=== PATIENT | female | born 1980 | race Caucasian/White ===

== ENCOUNTER → 2018-10-24 11:12 | Outpatient (CLI) | payer BC, SELFPAY ==
[2018-10-22 14:17] VITALS: BMI 22.9
[2018-10-24 12:05] LABS: Absolute Lymphocyte Count 1.91 X10^3/ul (0.83-4.51); Absolute Neutrophil Count 4.7 X10^3/uL (2.0-7.7); Basophil# 0.02 X10^3/uL; Basophil% 0.3 % (0-1); Eosinophil# 0.18 X10^3/uL; Eosinophils% 2.4 % (0-5); Hematocrit 44.3 % (37-47); Hemoglobin 14.3 g/dl (12.0-15.0); Lymphocyte # 1.91 X10^3/ul (4.0); Lymphocyte % 25.6 % (19-41); Mean Corp Hgb Conc 32.3 g/gl (32-36); Mean Corpuscular Hgb 31.4 pg (27.0-32.0); Mean Corpuscular Volume 97.1 fL (81-99); Mean Platelet Vol. 9.8 fl (6.2-12.0); Monocyte# 0.64 X10^3/uL; Monocyte% 8.6 % (0-10); Neutrophil # 4.69 X10^3/uL (2.7-7.7); POSITIVE COUNT NO; POSITIVE DIFFERENTIAL NO; POSITIVE MORPHOLOGY NO; Platelet Count 248 K/mm3 (150-450); RBC Distribution Width CV 12.6 % (11.6-14.6); RBC Distribution Width SD 44.8 fl (35.1-43.9); Red Blood Count 4.56 M/mm3 (4.2-5.4); White Blood Count 7.5 K/mm3 (4.4-11.0)
[2018-10-24 12:19] LABS: AST(SGOT) 15 U/L (15-37); Alanine Aminotransfer ALT/SGPT 21 U/L (13-56); Albumin, Serum 3.7 g/dL (3.2-5.0); Alkaline Phosphatase 52 U/L (45-117); Anion Gap 10 (5-15); BUN 9 mg/dL (7-18); BUN/Creat Ratio 13.1 RATIO (10-20); Calcium,Total 8.4 mg/dL (8.5-10.1); Chloride 106 mmol/L (98-107); Creatinine, Serum 0.68 mg/dL (0.55-1.02); EST Glomerular Filtration Rate 101 mL/min (>60); Est Glom Filt Rate - Afr Amer 122 mL/min (>60); Globulin 3.7 g/dL (2.2-4.2); Glucose 82 mg/dL (74-106); Potassium 3.9 mmol/L (3.5-5.1); Protein, Total 7.4 g/dL (6.4-8.2); Rheumatoid Factor < 10.0 IU/mL (<15); Sodium Level 140 mmol/L (136-145)
[2018-10-27 15:52] LABS: ANTINUCLEAR ANTIBODIES DIRECT Negative (Negative)
[2018-10-27 16:10] LABS: CCP IgG Antibodies 5 units (0-19)
== END ==
PROVIDERS: Family Provider Internal Medicine; PCP Internal Medicine; Referring Provider Internal Medicine; Visit Provider Internal Medicine
DX: M19.90 Unspecified osteoarthritis, unspecified site (principal); J45.909 Unspecified asthma, uncomplicated
CPT/HCPCS: 36415; 80053; 85025; 86038; 86200; 86225; 86235; 86431

== ENCOUNTER → 2018-11-24 08:25 | Outpatient (CLI) | payer BC, SELFPAY ==
[2018-11-21 09:57] VITALS: BMI 22.9
[2018-11-24 09:08] LABS: Absolute Lymphocyte Count 2.79 X10^3/ul (0.83-4.51); Absolute Neutrophil Count 4.2 X10^3/uL (2.0-7.7); Basophil# 0.02 X10^3/uL; Basophil% 0.3 % (0-1); Eosinophil# 0.15 X10^3/uL; Eosinophils% 1.9 % (0-5); Hematocrit 43.3 % (37-47); Hemoglobin 14.1 g/dl (12.0-15.0); Lymphocyte # 2.79 X10^3/ul (4.0); Lymphocyte % 35.7 % (19-41); Mean Corp Hgb Conc 32.6 g/gl (32-36); Mean Corpuscular Hgb 31.1 pg (27.0-32.0); Mean Corpuscular Volume 95.6 fL (81-99); Mean Platelet Vol. 9.5 fl (6.2-12.0); Monocyte# 0.64 X10^3/uL; Monocyte% 8.2 % (0-10); Neutrophil # 4.21 X10^3/uL (2.7-7.7); Neutrophil % 53.8 % (47-70); Platelet Count 246 K/mm3 (150-450); RBC Distribution Width CV 12.5 % (11.6-14.6); RBC Distribution Width SD 43.5 fl (35.1-43.9); Red Blood Count 4.53 M/mm3 (4.2-5.4); White Blood Count 7.8 K/mm3 (4.4-11.0)
[2018-11-24 09:09] LABS: POSITIVE COUNT NO; POSITIVE DIFFERENTIAL NO; POSITIVE MORPHOLOGY NO
[2018-11-24 09:36] LABS: Cholesterol 230 mg/dL (200); High Density Lipoprotein 89 mg/dL; Triglycerides 93 mg/dL; Very Low Density Lipoprotein 19 mg/dL (5-40)
[2018-11-24 09:44] LABS: Follicle Stimulating Hormone 8.2 mIU/mL
== END ==
PROVIDERS: Family Provider Internal Medicine; PCP Internal Medicine; Referring Provider Nurse Practitioner Women's Health; Visit Provider Nurse Practitioner Women's Health
DX: Z00.00 Encounter for general adult medical examination without abnormal findings (principal); N91.1 Secondary amenorrhea; R23.2 Flushing
CPT/HCPCS: 36415; 80061; 83001; 84443; 85025

== ENCOUNTER 2020-08-18 05:55 | Day surgery (SDC) | payer BC, SELFPAY ==
[2018-11-21 09:57] VITALS: BMI 22.9
--- NOTE | 2020-08-05 09:42 | HP.PCM_ITS ---
History and Physical Date of Admission: 08/18/20 HPI: The patient is a 39 year old female presenting for pre-operative visit. She is scheduled for?hysteroscopy D&C with polyp reseection, for?Abnormal uterine bleeding? on?08/18/2020. ??Procedure discussed along with risks, benefits and complications. ?Other alternatives discussed for management. Consent form signed??Yes.? PAST MEDICAL HISTORY PAST MEDICAL HISTORY Diagnosis Date ? Goiter diffuse, nontoxic ? ? Resolved ? Polycystic ovaries ? ? ? PAST SURGICAL HISTORY PAST SURGICAL HISTORY Procedure Laterality Date ? D&C, DIAG AND/OR THERAPEUTIC ? 2010 ? Dilation & curettage, miscarriage ? PAST SURGICAL HISTORY OF ? ? ? wisdom teeth extraction ? ? CURRENT MEDICATIONS Current Outpatient Medications Medication Sig Dispense Refill ? MAGNESIUM ORAL Take by mouth. ? ? ? docosahexaenoic acid/epa (FISH OIL ORAL) Take by mouth. ? ? ? cyanocobalamin, vitamin B-12, (VITAMIN B-12 ORAL) Take by mouth. ? ? ? norgestimate 0.25 mg-ethinyl estradiol 35 mcg (SPRINTEC) 0.25-35 mg-mcg per tablet Take 1 tablet daily. Take active pills only. 3 Package 5 ? No current facility-administered medications for this visit.? ? ALLERGIES:?Latex ? PERSONAL HISTORY:? SOCIAL HISTORY Social History ? Tobacco Use ? Smoking status: Never Smoker ? Smokeless tobacco: Never Used Substance Use Topics ? Alcohol use: Yes ? ? Comment: Occasionally ? Drug use: No ? FAMILY HISTORY:? FAMILY HISTORY FAMILY HISTORY Problem Relation Age of Onset ? No Known Problems Mother ? ? Hypertension Father ? ? other (parkinsons) Father ? ? No Known Problems Brother ? ? No Known Problems Brother ? ? other (Osteopenia) Sister ? ? Cancer Maternal Grandmother ?Bladder and Lung ? REVIEW OF SYMPTOMS: GENERAL: denies fevers or chills ENDOCRINOLOGY: has not been on steroids Cardiology : denies palpitations or chest pain Respiratory: denies SOB or cough Hematology: denies history of prolonged bleeding or easy bruising or VTE Allergy: Denies history of personal or family history of allergy to anesthesia ? ? PHYSICAL EXAMINATION: ? VITALS:?Last menstrual period 05/29/2013. ? GENERAL:??The patient is well nourished, well hydrated in no acute distress. ?, The patient is oriented to time, place, and person. NECK:?Supple. No lynphadenopathy, normal thyroid, no thyromegaly. LUNGS:?Clear to auscultation bilaterally. no wheezes, rhonchi or rales HEART:?Regular rate and rhythm, Normal heart sounds and No murmurs or gallops GENITALIA:?Normal external genitalia, Urethral meatus normal, Bladder nontender, normal vagina and normal vaginal tone, normal cervix, normal uterus, size and consistency, normal adnexa without masses or tenderness and perineum WNL ? IMPRESSION:?abnormal uterine bleeding, uterine fibroids and uterine polyps ? PLAN:???The risks/benefits/alternatives and personal involved for the planned?hysteroscopy D&C with possible polyp oand/or fibroid resection?were reviewed with the patient. Her questions were answered to her satisfaction and she desires to proceed. ?Consent was signed. ?I reviewed with her postop instructions and expectations. ? ? I have reviewed and updated past medical and surgical history, medications and allergies?This H&P was completed in my office on 08/05/2020 Procedure Criteria Procedure Type: Elective COVID Risk Discussion: The surgeon/proceduralist and patient have discussed in detail the risk of exposure to and/or potential harm posed by the COVID-19 virus with having a surgery/procedure at this time versus the risk of delaying the surgery/procedure. It is not possible to know either the risk of delaying the surgery or procedure or chance of getting an infection with perfect accuracy, b ut a joint decision was made between the patient and the surgeon/proceduralist to proceed at this time with the scheduled surgery/procedure as indicated on the consent form.
[2020-08-18] VITALS (7 sets, daily range): BP systolic 108–125; BP diastolic 73–83; PULSE 74–93; RESP 16; TEMP 36.8–37.2; O2SAT 97–100; BMI 26.3
[2020-08-18] MEDS: Acetaminophen 500 MG Tablet 1000 MG PO (06:23)
[2020-08-18 06:33] LABS: Internal QC Validated? YES +Cl - CLEAR BKGD; Pregnancy, Urine Negative Negative
[2020-08-18] MEDS: Lactated Ringers 1,000 ML 100 ML IV (06:35)
[2020-08-18] MEDS: Ketorolac 30 MG/ML Syringe IV (06:55)
--- NOTE | 2020-08-18 07:30 | EMB_PTH ---
PATIENT: BROCK JAIME LOC: [facility] U#:[id number] AGE/SX: 39/F ROOM: RE08/18/[address]: Dr. Swati Hawthorne MD : 1980 BED: DIS: 08/18/2020 SPEC #: [id number] RECD: 08/18/20 09:40 STATUS: LUIS DEEDeya #: [id number] ANA CRISTINA: 08/18/20 07:[address]: Swati Hawthorne DEPT: SURGICAL PATHOLOGY RECD BY: Anni Montes ENTERED: 08/18/20 11:27 SP TYPE: ENDOM BX/C CLEMENTINA DR: Dr. Delia Jiang MD Tissues: Endometrium, NOS Procedures: Surgery Specimen Level IV HEADER OPERATION: Hysteroscopy, D & C, fibroid resection PRE-OP DIAGNOSIS: Abnormal uterine bleeding, uterine fibroids TISSUE SUBMITTED: Endometrial curettings and uterine fibroid MICROSCOPIC DIAGNOSIS Endometrial curettings and uterine fibroid: Fragments of weakly proliferative endometrium. Fragments of myometrium consistent with submucosal leiomyoma. Focal changes suggestive of adenomyosis. Fragments of benign ectocervical epithelium. TEREZA:jeana 08/19/20 MICROSCOPIC DESCRIPTION Slides are reviewed. GROSS DESCRIPTION Received in fixative is one container labeled with the patient's name and designated endometrial curettings and uterine fibroid. The specimen consists of multiple irregular fragments of enriquez soft tissue that in aggregate measure 5 x 3 x 0.3 cm. The entire specimen is submitted in two cassettes. / TEREZA:jeana 08/18/20 TC:1 CPT: 72580
--- NOTE | 2020-08-18 08:11 | PCM.OPRPT ---
Report of Operation Date of Procedure: 08/18/20 Pre-Operative Diagnosis: Abnormal uterine bleeding, uterine fibroids Post-Operative Diagnosis: Same Surgery/Procedure Performed:: Hysteroscopy with dilation and curettage with fundal anterior fibroid resection Description of Surgical Findings:: Normal-appearing cervix and vagina, endometrial cavity with lush endometrium. No discrete polyps. Anterior fundal fibroid protruding into the endometrial cavity. Both tubal ostia were identified. aircraft cylinder mechanic: len Boyd MS3 Type of Anesthesia:: MAC/Supplemental/Local Anesthesiologist: Price Carrington Special Medications: none Specimen's removed: enodmetrial curettings and uterine fibroid Drains: none Estimated Blood Loss (mL): 10 Fluids Replaced: 900cc Description of Procedure: The patient was taken to the OR where she was prepped and draped in dorsal lithotomy position. The weighted speculum was placed in the vagina and the anterior lip of the cervix was grasped with a single-tooth tenaculum. A paracervical block was administered with [1% lidocaine with 1-100,000 epinephrine solution]. The cervix was dilated serially with Hegar dilators. The Symphion hysteroscope was placed into the uterine cavity and the above findings were noted. Bilateral tubal ostia [were] identified. The resection device for the Symphion hysteroscope was inserted. A visual D&C was done of the endometrial cavity. The anterior uterine fibroid was then resected until it was no longer protruding into the cavity. The hysteroscope was removed. The instruments were removed from the vagina. The specimen was handed off and sent to pathology. All sponge and needle counts were correct. Vaginal sweep was performed by me. The patient was awakened and taken to the recovery room in stable condition. Calculated hysteroscopic fluid deficit is 900 cc of normal saline Start time 0749 Stop time 0810 Grafts/Implants Used: none - Complications none - Admit VTE Documentation VTE Present on Admission: No VTE Mechan Device Prophylaxis: SCD's VTE Pharm Prophylaxis ordered?: No Reason prophylaxis not ordered:: Procedure Not Indicated
--- NOTE | 2020-08-18 08:36 | DCINST_ITS ---
Discharge Diet: No Restrictions Discharge Activity: Return to Normal Activity, May Shower, May Take a Tub Bath - in 2 weeks. Return to work on:: 08/19/20 May shower in (days): 1 May resume sexual activity in: 2 weeks Call your doctor if your incision/area has: Sudden Increased Bleeding Call your doctor if you observe: Fever of 101 or Higher, Using more than one pad per hour Allergies/Adverse Reactions: Allergies Latex, Natural Rubber Allergy (Intermediate, Verified 08/02/20 13:27) inflamation Medications to take at Discharge cholecalciferol (vitamin D3) 25 mcg (1,000 unit) capsule 1,000 unit PO DAILY 10/22/18 magnesium 30 mg tablet 30 mg PO DAILY 10/22/18 Cyanocobalamin (Vitamin B-12) [Vitamin B-12] 1,000 mcg PO DAILY 08/02/20 Norgestimate-Ethinyl Estradiol [Sprintec 28 Day Tablet] 1 ea PO DAILY 08/02/20 Primary Care Physician: Delia Jiang MD [Primary Care Provider] - Test Results: Test results from this visit will be discussed in further detail at your follow- up appointment, if applicable. Please Follow Up With: Swati Hawthorne MD - [phone] When: as needed. We will call you next week with your pathology results
== END 2020-08-18 09:26 | disposition home or self-care (01) ==
LOC: SDC 05:55 → AC 05:56
PROVIDERS: Anesthesiology; PCP Internal Medicine; Referring Provider Obstetrics & Gynecology; Visit Provider Obstetrics & Gynecology
PROC: 0UB98ZZ Excision of Uterus, Via Natural or Artificial Opening Endoscopic (ICD-10-PCS; CPT 58558; principal; 2020-08-18 07:15)
DX: N93.9 Abnormal uterine and vaginal bleeding, unspecified (principal); D25.9 Leiomyoma of uterus, unspecified; N84.0 Polyp of corpus uteri; Z11.59 Encounter for screening for other viral diseases
CPT/HCPCS: 58561; 81025; 87635; 88305; C9803; J7120; J2405; U0003

== ENCOUNTER 2022-06-01 05:29 | Day surgery (SDC) | payer BC, SELFPAY ==
[2022-05-25 15:13] LABS: Hematocrit 37.9 % (37-47); Hemoglobin 12.7 g/dL (12.0-15.0); Mean Corp Hgb Conc 33.5 g/dL (32-36); Mean Corpuscular Hgb 31.4 pg (27.0-32.0); Mean Corpuscular Volume 93.8 fL (81-99); Mean Platelet Vol. 9.9 fl (6.2-12.0); Platelet Count 274 K/mm3 (150-450); RBC Distribution Width CV 12.5 % (11.6-14.6); RBC Distribution Width SD 43.3 fl (35.1-43.9); Red Blood Count 4.04 M/mm3 (4.2-5.4); White Blood Count 8.3 K/mm3 (4.4-11.0)
[2022-05-25 15:25] LABS: International Normalized Ratio 0.9; Prothrombin Time (Protime)PT. 12.2 SECONDS (11.7-14.9)
[2022-05-25 15:26] LABS: Partial Thromboplast Time 30.1 Seconds (24.1-36.2)
[2022-05-25 15:49] LABS: AST(SGOT) 12 U/L (15-37); Alanine Aminotransfer ALT/SGPT 14 U/L (13-56); Albumin, Serum 3.6 g/dL (3.2-5.0); Alkaline Phosphatase 53 U/L (45-117); Bilirubin, Direct 0.11 mg/dL (0.00-0.30); Globulin 3.6 g/dL (2.2-4.2); Magnesium 2.2 mg/dL (1.6-2.6); Protein, Total 7.2 g/dL (6.4-8.2)
[2022-06-01] VITALS (12 sets, daily range): BP systolic 97–116; BP diastolic 59–79; PULSE 65–101; RESP 16; TEMP 36.1–37.2; O2SAT 92–100; BMI 25.7
[2022-06-01 06:12] LABS: Internal QC Validated? YES +Cl - CLEAR BKGD; Pregnancy, Urine Negative Negative
[2022-06-01] MEDS: Lactated Ringers 1,000 ML 40 ML IV ×2 (06:57→09:01)
[2022-06-01] MEDS: Phenazopyridine 95 MG Tablet 190 MG PO (06:57)
[2022-06-01] MEDS: Gabapentin 600 MG Tablet PO (06:58)
[2022-06-01] MEDS: Celecoxib 200 MG Capsule 400 MG PO (06:58)
[2022-06-01] MEDS: Acetaminophen 500 MG Tablet 1000 MG PO (06:58)
[2022-06-01] MEDS: Scopolamine 1mg/72hr Patch 1 PATCH TD (06:59)
--- NOTE | 2022-06-01 07:30 | HYST_PTH ---
PATIENT: BROCK JAIME LOC: [facility] [place] U#:[id number] AGE/SX: 41/F ROOM: RE06/01/[address]: Dr. Swati Hawthorne MD : 1980 BED: DIS: 06/01/2022 SPEC #: [id number] RECD: 06/01/22 09:55 STATUS: LUIS YOUNGBLOOD #: [id number] ANA CRISTINA: 06/01/22 07:[address]: Swati Hawthorne DEPT: SURGICAL PATHOLOGY RECD BY: Anni Montes ENTERED: 06/01/22 10:51 SP TYPE: HYSTERECT OTHR DR: Dr. Delia Jiang MD Tissues: Uterus, NOS Procedures: Surgery Specimen Level V HEADER OPERATION: Hysterectomy, TLH, salpingectomy PRE-OP DIAGNOSIS: Intramural uterine fibroid, dyspareunia, abnormal uterine bleeding TISSUE SUBMITTED: Cervix, uterus, bilateral fallopian tubes MICROSCOPIC DIAGNOSIS Uterus, hysterectomy: Cervix ? nabothian cysts and mild chronic inflammation. Endometrium ? proliferative endometrium. Myometrium ? leiomyomas with degenerative change and adenomyosis. Bilateral fallopian tubes - benign paratubal cysts. AM:jeana 06/05/2022 MICROSCOPIC DESCRIPTION Slides are reviewed. GROSS DESCRIPTION Received in fixative is one container labeled with the patient's name and designated cervix, uterus, bilateral fallopian tubes. The specimen consists of a hysterectomy specimen consisting of uterus with cervix and detached bilateral fallopian tubes. The uterus with cervix weighs 116 gm and measures 10.5 x 7 x 4.5 cm. Multiple subserosal nodules are noted. The serosal surface is enriquez, glistening. The ectocervical mucosa is unremarkable. The external os is oval in contour. The endocervical canal measures 3 cm in length and the endocervical mucosa is enriquez, glistening and unremarkable. The triangular endometrial cavity measures 3.5 cm in length and up to 2.5 cm in width. The endometrium is enriquez, glistening without any mass lesion and measures 0.1 cm in thickness. Sections of the uterine wall reveal multiple submucosal intramural and subserosal nodular masses. The largest mass measures 2 cm in greatest dimension. Sections of these masses reveal enriquez whorled cut surfaces without areas of hemorrhage, necrosis or cystic degeneration. The uninvolved uterine wall measures up to 2.5 cm in thickness. The fallopian tubes are not identified as right or left. One fallopian tube measures 7.5 cm in length and 0.5 cm in diameter. The fimbrial end is identified. The second fallopian tube is similar appearance to first one and measures 5.5 cm in length and 0.5 cm in diameter. A paratubal cyst is also noted measuring 0.7 cm in greatest dimension. Sections reveal unremarkable cut surfaces. Racking Machine Operator sections are submitted in 11 cassettes as follows: 1 - anterior cervix, 2 - posterior cervix, 3 & 4 - anterior uterine wall, 5 & 6 - posterior uterine wall, submucosal and intramural masses, 7 & 8 - largest nodular masses, 9 - smaller nodular masses, 10 - one fallopian tube, 11 - second fallopian tube and paratubal cyst. / SJ:rg 06/01/2022 TC:1 CPT: 15443
--- NOTE | 2022-06-01 07:33 | PCM.HP.BLA ---
History and Physical Date of Admission: 06/01/22 Patient seen and examined. H&P reviewed. No clinically relevant updates since completed and entered. Assessment & Plan Assessment/Plan (1) Intramural uterine fibroid: (2) Dyspareunia: (3) Abnormal uterine bleeding (AUB):
--- NOTE | 2022-06-01 07:38 | DCINST_ITS ---
Discharge Instructions Diet Discharge Diet: Light diet - advance as tolerated Activity Discharge Activity: May Drive (5-10 days as tolerated when not on pain medication) May shower in (days): 1 May resume sexual activity in: 6 weeks Dressing / Incision Call your doctor if your incision/area has: Continuous Slow Oozing, Sudden Increased Bleeding and Foul Smelling Discharge Call your doctor if you observe: Fever of 101 or Higher Cleanse incision/area with: Soap & Water (Your incisions have skin glue, it can get wet. Leave it on for 10-14 days) Follow Up Care Please Follow Up With: Swati Hawthorne MD When: 1-2 and 6 weeks or as needed Test Results: Test results from this visit will be discussed in further detail at your follow- up appointment, if applicable. Discharge Plan Admission Primary Reason for Your Visit: Hysterectomy Attending Provider: Swati Hawthorne Primary Care Provider: Delia Jiang Instructions Patient Instructions: Discharge Instructions for ... Discharge Orders/Prescriptions Prescriptions: No Action magnesium 30 mg tablet 30 mg PO QODAY cholecalciferol (vitamin D3) 1,000 unit capsule 1,000 unit PO QODAY norgestimate-ethinyl estradiol 1 EACH tablet 1 ea PO DAILY cyanocobalamin (vitamin B-12) 1,000 MCG tablet 1,000 mcg PO DAILY Referrals / Follow Up: Delia Jiang MD [Primary Care Provider] - Disposition Disposition (needs filled in before D/C Order can be placed): Home, Self Care
[2022-06-01] MEDS: Cefazolin 2 GM in 0.9% Normal Saline 100 ML IV (07:39)
[2022-06-01] MEDS: dexAMETHasone 10 MG/ML Vial 8 MG IV (08:00)
[2022-06-01] MEDS: Bupivacaine Mpf 0.5% 30 ML VIAL (08:30)
[2022-06-01] MEDS: Ondansetron 4 MG/2 ML Vial IV (09:00)
--- NOTE | 2022-06-01 09:05 | PCM.OPRPT ---
Problems Associated Problem List Diagnoses (1) Abnormal uterine bleeding (AUB): (2) Dyspareunia: (3) Intramural uterine fibroid: Report of Operation Date of Procedure: 06/01/22 Pre-Operative Diagnosis: AUB, dyspareunia, intramural uterine fibroids Post-Operative Diagnosis: same + endometriosis of the peritoneum Surgery/Procedure Performed:: TLH, bilateral salpingectomy and cystoscopy Description of Surgical Findings:: enlarged boggy uterus, normal tubes and ovaries, normal appendix, some endometriosis on anterior uterus, posterior cul de sac over cervix and left ovarian fossa on peritoneum Surgeon: Swati Hawthorne director data processing: Vanda Petit Type of Anesthesia: General Anesthesiologist: Chico Eller Special Medications: none Specimen's removed: uterus, cervix, bilateral fallopian tubes Drains: none Estimated Blood Loss (mL): 50 Fluids Replaced: 1800 Description of Procedure: The patient was taken to the operating room where she was prepped and draped in the dorsal lithotomy position. Her arms were tucked to the side and padded and her legs were placed in the yellowfin stirrups. Care was taken to ensure that she was placed in a neurologically safe and neutral position. The Huggie VAC was placed around the patient to secure her. A weighted speculum was placed in the vagina and the anterior lip of the cervix was grasped with a single-tooth tenaculum. The cervix sounded to 9 centimeters. 2-0 Vicryl sutures were secured to the cervix at 3 and 9:00. The medium size uterine manipulator was placed into the cervix and the balloon inflated. The stay sutures were placed through the cup and secured down to the cervix. Once the uterine associate juvenile court judge was secured to the cervix the Minor catheter was placed to straight drain. Attention was turned to the abdominal portion of the case. Before skin incisions were made they were infiltrated with 0.5% Marcaine solution for local anesthetic. A 5 mm [intraumbilical] incision was made and while tenting the anterior abdominal wall up with towel clamps a 5 mm blade less trocar and sleeve were advanced directly into the peritoneal cavity. Peritoneal placement was confirmed with the laparoscope the pneumoperitoneum was created, and the underlying abdominal contents were intact. The patient was placed in Trendelenburg and the above findings were noted. Right and left lateral 5 mm trochars were placed under direct visualization without difficulty. The antimesenteric portion of the tube was clamped sealed and transected serially on both sides with the LigaSure device. The round ligaments were clamped sealed and transected and a window was made in the peritoneum. The utero-ovarian ligaments were then clamped sealed and transected with the LigaSure device and the pedicles were hemostatic The bladder flap was dissected down with the LigaSure device and blunt dissection and the uterine arteries were then skeletonized. The uterine arteries were clamped sealed and transected on both sides with the LigaSure device. Then along the cardinal ligament uterine arteries adjacent to the cervix were clamped sealed and transected with the LigaSure device to move them away from the vaginal cuff angle. At this point the pedicles were all examined and found to be hemostatic. The bladder flap was rechecked and found to be adequately down. The monopolar tip of the LigaSure device was then used to enter the anterior vagina. The vaginal manipulator cup was noted in the vaginal colpotomy incision was made circumferentially around the cup. When the 3 and 9:00 positions of the cervicovaginal junction were reached these were clamped sealed and transected with the LigaSure device to secure any small remaining vessels. At this point the pedicles were hemostatic from above and attention was turned to the vaginal portion of the case again. The uterus was brought intact out through the vaginal colpotomy incision. The pedicles were examined and found to be hemostatic. The cuff was closed horizontally with interrupted 0 Vicryl [id number] sutures. Care was taken to spare the vagina to the uterosacral ligaments. The cuff was hemostatic vaginally. The Minor catheter was removed and a cystoscopy was performed. The bladder appeared normal and was intact. Both ureteral orifices were noted and both ureteral jets were seen. The cystoscope was removed. A sponge stick was placed in the vagina to help place traction against the vaginal cuff and the pneumoperitoneum was re-created. The pedicles were reexamined and found to be hemostatic. The vaginal cuff was hemostatic. Some Etjinder was placed over the cuff and the pedicles and no active bleeding was noted through the Tejinder. The right and left lateral ports were taken out and the sites were hemostatic. The pneumoperitoneum was released and even under low pressure there was no bleeding of any of the pedicles are vaginal cuff. The umbilical port was removed. The umbilical skin incisions were closed with Monocryl suture and skin glue by [Dr. Lee]. The vaginal instruments were removed by me and a vaginal sweep was completed by me. The surgery was performed by me with assistance other than the portions dictated as above. There were no qualified residents available for this procedure. All sponge lap and needle counts were correct and the patient was transferred to the recovery room in stable condition. Dr. Lee provided uterine manipulation, tissue retraction, and laparoscopic assistance during the surgery. Grafts/Implants Used: none Procedure Start Time: 08:06 Procedure Stop Time: 09:07 Complications none Admit VTE Documentation VTE Present on Admission: No VTE Mechan Device Prophylaxis: SCD's VTE Pharm Prophylaxis ordered?: No Reason prophylaxis not ordered:: Procedure Not Indicated
[2022-06-01 09:20] LABS: Bedside Glucose 248 mg/dL (74-106)
[2022-06-01] MEDS: Lactated Ringers @ 70 MLS/HR 70 ML IV (10:14)
[2022-06-01 11:00] LABS: Bedside Glucose 105 mg/dL (74-106)
[2022-06-01 12:12] LABS: Hematocrit 36.5 % (37-47); Hemoglobin 12.1 g/dL (12.0-15.0); Mean Corp Hgb Conc 33.2 g/dL (32-36); Mean Corpuscular Hgb 31.9 pg (27.0-32.0); Mean Corpuscular Volume 96.3 fL (81-99); Mean Platelet Vol. 9.7 fl (6.2-12.0); Platelet Count 183 K/mm3 (150-450); RBC Distribution Width CV 12.7 % (11.6-14.6); RBC Distribution Width SD 45.1 fl (35.1-43.9); Red Blood Count 3.79 M/mm3 (4.2-5.4); White Blood Count 11.9 K/mm3 (4.4-11.0)
[2022-06-01] MEDS: traMADol 50 MG Tablet PO (12:41)
[2022-06-01] MEDS: Lactated Ringers 1,000 ML 75 ML IV (13:35)
== END 2022-06-01 15:25 | disposition home or self-care (01) ==
LOC: SDC 05:31 → AC 05:32
PROVIDERS: Anesthesiology; PCP Internal Medicine; Referring Provider Obstetrics & Gynecology; Visit Provider Obstetrics & Gynecology
PROC: 0UT94ZZ Resection of Uterus, Percutaneous Endoscopic Approach (ICD-10-PCS; CPT 58571; principal; 2022-06-01 07:10)
DX: N93.9 Abnormal uterine and vaginal bleeding, unspecified (principal); N94.10 Unspecified dyspareunia; D25.1 Intramural leiomyoma of uterus; N80.0 Endometriosis of uterus; N80.3 Endometriosis of pelvic peritoneum; N88.8 Other specified noninflammatory disorders of cervix uteri; N83.8 Other noninflammatory disorders of ovary, fallopian tube and broad ligament; E53.8 Deficiency of other specified B group vitamins; E55.9 Vitamin D deficiency, unspecified; M19.90 Unspecified osteoarthritis, unspecified site
CPT/HCPCS: 58571; 00840; 36415; 80076; 81025; 82962; 83735; 85027; 85610; 85730; 88307; J7120; J2405; J3475

== ENCOUNTER → 2022-07-13 | Outpatient (CLI) | payer BC, SELFPAY ==
[2022-07-13 12:42] LABS: Erythrocyte Sedimentation Rate 3 mm/hr (0-30)
[2022-07-13 13:00] LABS: ALB/GLOB Ratio 1.2 RATIO (0.9-2.4); AST(SGOT) 23 U/L (15-37); Alanine Aminotransfer ALT/SGPT 40 U/L (13-56); Albumin, Serum 4.1 g/dL (3.2-5.0); Alkaline Phosphatase 73 U/L (45-117); Anion Gap 6 (5-15); BUN 10 mg/dL (7-18); BUN/Creat Ratio 12.4 RATIO (10-20); Calcium,Total 9.4 mg/dL (8.5-10.1); Chloride 106 mmol/L (98-107); Cholesterol 220 mg/dL (200); EST Glomerular Filtration Rate 82 mL/min (>60); Est Glom Filt Rate - Afr Amer 100 mL/min (>60); Globulin 3.5 g/dL (2.2-4.2); Glucose 91 mg/dL (74-106); High Density Lipoprotein 90 mg/dL; Potassium 4.2 mmol/L (3.5-5.1); Protein, Total 7.6 g/dL (6.4-8.2); Rheumatoid Factor < 10.0 IU/mL (<15); Sodium Level 138 mmol/L (136-145); Triglycerides 67 mg/dL; Very Low Density Lipoprotein 13 mg/dL (5-40)
[2022-07-13 13:25] LABS: Hemoglobin A1c 5.3 % (3.8-5.6)
[2022-07-17 09:18] LABS: ANTINUCLEAR ANTIBODIES DIRECT Negative (Negative)
== END | disposition home or self-care (01) ==
LOC: BIMLAB 10:25
PROVIDERS: PCP Internal Medicine; Referring Provider Internal Medicine; Visit Provider Internal Medicine
DX: M19.90 Unspecified osteoarthritis, unspecified site (principal); E78.5 Hyperlipidemia, unspecified; R73.9 Hyperglycemia, unspecified
CPT/HCPCS: 36415; 80053; 80061; 83036; 85652; 86038; 86225; 86235; 86431

== ENCOUNTER → 2022-09-10 | Outpatient (CLI) | payer BC, SELFPAY ==
--- NOTE | 2022-09-10 17:14 | RAD_ITS ---
STUDY: X-RAY - SACRUM/COCCYX REASON FOR EXAM: Female, 41 years old. Low back pain TECHNIQUE: 3 view(s) of the sacrum and coccyx were obtained. COMPARISON: None. FINDINGS: Normal bilateral sacroiliac joints. Normal visualized sacral ala and fused sacral bodies. Normal sacrococcygeal junction with a normal angulation. Normal coccygeal segments. The presacral soft tissue structures are unremarkable. RAD/Sacrum-Coccyx min 2 Views IMPRESSION: Normal x-rays of the sacrum and coccyx. Electronically Signed: Holden North MD, TAMMI at 10:20 EDT ,
== END | disposition home or self-care (01) ==
LOC: RAD 17:07
PROVIDERS: PCP Internal Medicine; Referring Provider Internal Medicine; Visit Provider Internal Medicine
DX: M54.50 Low back pain, unspecified (principal); M53.3 Sacrococcygeal disorders, not elsewhere classified
CPT/HCPCS: 72220

== ENCOUNTER → 2024-05-22 | Outpatient (CLI) | payer BC, SELFPAY ==
--- NOTE | 2024-05-22 12:53 | BI_ITS ---
MAMMOGRAPHY - BILATERAL SCREENING REASON FOR EXAM: Female, 43 years old. Routine annual screening examination. PERTINENT HISTORY: Aunt with breast cancer. TECHNIQUE: Digital bilateral breast [place] (3D mammographic acquisition) in the CC and MLO projections. 2-D mediolateral oblique (MLO) and craniocaudad (CC) views of both breasts were obtained. CAD: Full Field Digital Mammography with Computer Added Detection was performed. COMPARISON: Comparison is made with prior outside examination dated April 27, 2022. FINDINGS: Breast Composition: The breasts are heterogeneously dense, which may obscure small masses. There are no dominant masses or suspicious calcifications. No other significant abnormalities are identified. There has been no significant change since the prior study. BI/SCRN MAMM (CAD)W/[place] BILAT IMPRESSION: Stable bilateral screening mammogram. Yearly follow-up mammogram recommended. (A) ASSESSMENT CATEGORY: BIRADS Category 1: Negative. A letter regarding these results will be sent to the patient by the facility within 30 days. Approximately 10% of breast cancers are not detected by mammography. A normal mammogram should not delay biopsy of a clinically suspicious abnormality. [id number] Electronically Signed: Deven Richards MD at 14:15 EDT ,
== END | disposition home or self-care (01) ==
LOC: OPBI 12:52
PROVIDERS: PCP Internal Medicine; Referring Provider Nurse Practitioner; Visit Provider Nurse Practitioner
DX: Z12.31 Encounter for screening mammogram for malignant neoplasm of breast (principal)
CPT/HCPCS: 77063; 77067

== ENCOUNTER 2024-06-12 08:04 | Day surgery (SDC) | payer BC, SELFPAY ==
[2024-06-12] VITALS (7 sets, daily range): BP systolic 95–103; BP diastolic 58–73; PULSE 78–91; RESP 16–18; TEMP 36.2–36.7; O2SAT 97–100; BMI 25.3
[2024-06-12] MEDS: Lactated Ringers 1,000 ML 15 ML IV (08:15)
--- NOTE | 2024-06-12 08:15 | PCM.PRE.AN2 ---
ASA Classification* ASA Classification ASA Classification: 2 Assessment & Plan Anesthesia* Anesthesia Assessment Anesthesia Assessment: Discussed sedation and/or anesthesia options, risks, benefits, and alternatives with patient/parents/legal guardian/POA. Questions invited. The patient/parents/legal guardian/POA seems to understand and agrees to proceed with anesthesia plan. Reviewed the physical assessment, medical history, allergy history and patient home medications list prior to surgery/procedure/anesthetic and documented any changes. Performed airway and anesthesia risk assessments. Anesthesia Type Anesthesia Type: MAC (see written pre anesthesia record for full assessment) Anesthesia Focused Assessment* Airway Assessment Mouth opens: >3 cm Mallampati Score: II Focused Labs Anesthesia Preop lab: CBC WBC 11.9 K/mm3 (4.4-11.0) H 06/01/22 12:00 RBC 3.79 M/mm3 (4.2-5.4) L 06/01/22 12:00 Hgb 12.1 g/dL (12.0-15.0) 06/01/22 12:00 Hct 36.5 % (37-47) L 06/01/22 12:00 Plt Count 183 K/mm3 (150-450) 06/01/22 12:00 CHEMISTRY Potassium 4.2 mmol/L (3.5-5.1) 07/13/22 10:26 Sodium 138 mmol/L (136-145) 07/13/22 10:26 Magnesium 2.2 mg/dL (1.6-2.6) 05/25/22 14:16 BUN 10 mg/dL (7-18) 07/13/22 10:26 Creatinine 0.80 mg/dL (0.55-1.02) 07/13/22 10:26 Glucose 91 mg/dL (74-106) 07/13/22 10:26 POC Glucose 105 mg/dL (74-106) 06/01/22 10:56 TSH 1.70 uIU/mL (0.358-3.74) 11/24/18 08:29 COAG PT 12.2 SECONDS (11.7-14.9) 05/25/22 14:16 Urine Test Negative Negative 06/01/22 06:00 Pre-Assessment Diagnosis/Proposed Procedure Planned Operative Procedure(s): COLONOSCOPY Anesthesia History 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 When Was Last Pacemaker Check QUESTION #4 FULL TEXT: You/Your Family Experience fever (hyperthermia) with Anesthesia Last Oral Intake Last Oral intake: Last Oral Intake NPO since Meds taken in AM with sips of water? Meds patient instructed to take am of surgery PONV PONV - metabolic specialist: PONV - metabolic specialist Female Yes 06/08/24 10:07 HX of Motion Sickness Yes 06/08/24 10:07 HX of N/V After Surgery Yes 06/08/24 10:07 Non-Smoker Yes 06/08/24 10:07 Duration of Surgery greater No 06/08/24 10:07 than 60 minutes Number of Risk Factors 4 06/08/24 10:07 PONV Score Severe Risk 06/08/24 10:07 Height & Weight Height & Weight: Anesthesia: Height & Weight Height 5 ft 4 in 05/12/24 13:06 Respiratory Assessment Respiratory Assessment - metabolic specialist: Respiratory Tract Infection Hx - metabolic specialist Hx Respiratory Tract Infection No 06/08/24 10:07 STOP Sleep Apnea STOP Sleep Apnea - metabolic specialist: STOP Sleep Apnea - metabolic specialist Hx Hypertension No 06/08/24 10:07 Hx Sleep Apnea No 06/08/24 10:07 CPAP BIPAP Do you snore loudly (louder No 06/08/24 10:07 than talking or can be heard Do you often feel tired/ No 06/08/24 10:07 fatigued/ sleepy during daytime? Has anyone observed you stop No 06/08/24 10:07 breathing during sleep? STOP Results Negative 06/08/24 10:07 QUESTION #5 FULL TEXT : Do you snore loudly (louder than talking or can be heard through closed doors)? 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 Specify any problems Hx of Preganancy in last 3 No 06/08/24 10:07 Months Nurse Filling Out Transfusion [facility] 06/08/24 10:07 & Questions: Date: 06/08/24 06/08/24 10:07 Time: 10:12 06/08/24 10:07 Patient unable to answer at this time (ie. confused, unrespo /Reproduction History /Reproductive History - metabolic specialist: /Reproductive Hx- metabolic specialist Hx Now No 06/08/24 10:07 Gestational Age (in weeks): EDC: Hx Hx Para Hx Section SAB No 06/08/24 10:07 Active Medications Active Medications: Current Medications Generic Name Dose Route Start Last Admin Trade Name Freq PRN Reason Stop Dose Admin Lactated Ringer's 1,000 mls @ 15 mls/hr 06/12/24 08:15 IV .Q48H JETT PFSH Medical History Acute pharyngitis, unspecified Polyarthropathy Tail bone pain Hyperlipidemia Hyperglycemia Excessive bleeding Depression Alcohol use Restless legs Non-smoker PONV (postoperative nausea and vomiting) Leg cramps Migraines Asthma Vitamin D deficiency Vitamin B12 deficiency History of polycystic ovaries Home Medications ?Medication ?Instructions ?Recorded ?Last Taken ?Type cholecalciferol (vitamin D3) 25 1,000 unit PO QODAY supplement 10/22/18 Unknown History mcg (1,000 unit) capsule magnesium 30 mg tablet 30 mg PO QODAY supplement 10/22/18 Unknown History cyanocobalamin (vitamin B-12) 1,000 mcg PO DAILY supplement 08/02/20 Unknown History 1,000 mcg tablet omega 1-csi-fkx-fish oil 1,200 mg 1 cap PO DAILY 07/13/22 Unknown History (144 mg-216 mg) capsule (Fish Oil) Allergy/AdvReac Type Severity Reaction Status Date / Time Latex, Natural Rubber Allergy Intermediate inflamation Verified 05/12/24 13:04 adhesive (adhesives) Allergy Rash Verified 05/12/24 13:04 Family History Father Parkinsons Surgical History H/O: hysterectomy Hx of LASIK History of D&C History of wisdom tooth extraction History of removal of cyst Social History household members: spouse current occupational status: employed Smoking Status: Never smoker alcohol intake: current alcohol intake frequency: holidays/special occasions only substance use type: does not use what type of physical activity do you participate in: walking and weight training frequency: 3-4 times per week additional social history: Alexsander- Both work at [employer] Review of Systems (Anesthesia) ROS Narrative System reviewed and no additional complaints, except as documented.
--- NOTE | 2024-06-12 09:30 | H&P.OPEN ---
HPI - General HPI Narrative BROCK JAIME, is a 43 F who presents for screening colonoscopy. She has never had a colonoscopy in the past. She denies abdominal pain or blood in the stool. She has no family history of colon cancer. [facility] Medical History Acute pharyngitis, unspecified Polyarthropathy Tail bone pain Hyperlipidemia Hyperglycemia Excessive bleeding Depression Alcohol use Restless legs Non-smoker PONV (postoperative nausea and vomiting) Leg cramps Migraines Asthma Vitamin D deficiency Vitamin B12 deficiency History of polycystic ovaries Home Medications ?Medication ?Instructions ?Recorded ?Last Taken ?Type cholecalciferol (vitamin D3) 25 1,000 unit PO QODAY supplement 10/22/18 Unknown History mcg (1,000 unit) capsule magnesium 30 mg tablet 30 mg PO QODAY supplement 10/22/18 Unknown History cyanocobalamin (vitamin B-12) 1,000 mcg PO DAILY supplement 08/02/20 Unknown History 1,000 mcg tablet omega 5-kap-ksy-fish oil 1,200 mg 1 cap PO DAILY 07/13/22 Unknown History (144 mg-216 mg) capsule (Fish Oil) Allergy/AdvReac Type Severity Reaction Status Date / Time Latex, Natural Rubber Allergy Intermediate inflamation Verified 05/12/24 13:04 adhesive (adhesives) Allergy Rash Verified 05/12/24 13:04 Family History Father Parkinsons Surgical History H/O: hysterectomy Hx of LASIK History of D&C History of wisdom tooth extraction History of removal of cyst Social History household members: spouse current occupational status: employed Smoking Status: Never smoker alcohol intake: current alcohol intake frequency: holidays/special occasions only substance use type: does not use what type of physical activity do you participate in: walking and weight training frequency: 3-4 times per week additional social history: Alexsander- Both work at [employer] Past Medical/Surgical History Planned Operation Planned Operative Procedure(s): COLONOSCOPY S.O.S: No Previous Hospitalizations/Surgeries HX Hospitalizations: No HX of Surgeries: wisdom teeth removed D&C Any Problems With Anesthesia: Yes (N/V) You/Your Family Experience Fever (Hyperthermia) With Anes: No Cholinesterase deficiency: No Cardiovascular Hx Chest Pain within Last 2 months: No Hx of Irregular Heartbeat and/or Afib: No Hx Heart Attack: No Hx Congestive Heart Failure: No Hx Rheumatic Fever: No Hx Hypertension: No Hx Internal Defibrillator: No Hx Pacemaker: No Hx Cardiac Catheterization: No Hx Cardiac Surgery/Stents/Etc.: No Hx Stress Test: No (echo 2015,holter) Hx Pain in Legs when Walking/Leg Cramps: No Respiratory Chronic Cough: No HX of Shortness of Breath: No (denies) Hoarseness: No Hx Chronic Obstructive Pulmonary Disease (COPD): No Hx Asthma: Yes (exercise induced/no inhaler) Hx Emphysema: No Hx Sleep Apnea: No Hx Respiratory Tract Infection/Cold (presently): No Do You Snore Loudly (louder than talking or can be heard): No Do You Often Feel Tired/ Fatigued/ Sleepy Dring Daytime?: No Has Anyone Observed You Stop Breathing During Sleep?: No Result (for STOP score): Negative Hx Smoking: No Smoking Status: Never smoker Gastrointestinal Hx Gastrointestinal Disorders: No Hx Gastrointestinal Bleed: No Hx Ulcer: No Hx Hiatal Hernia: No Difficulty Chewing/Swallowing: No Special diet followed at home: No Hx Unplanned Weight Loss of 20#: No HX Unplanned Weight Gain of 20#: No Neurological Hx Seizures: No HX Syncope/Blackout Spells/Unconsciousness: No Hx Transient Ischemic Attacks (TIA): No Hx Multiple Sclerosis: No Hx Parkinson's Disease: No Hx Head/Neck Injury: No Hx Headaches: Yes (occas) Hx Back Injury/Pain: No Recent Onset of Speech Difficulty: No Restless Legs: No Does patient have nerve stimulator: No Blood Disorder Hx Leukemia: No Bleeding Tendencies: No Hx Deep Vein Thrombosis: No Hx High Cholesterol: No Blood Transmitted Disease: No Hx Hepatitis: No Hx Cirrhosis: No Hx Anemia: No Hx Blood Disorders: No Reproduction : No Is Patient Lactating: No Hx Hysterectomy: No Hx Tubal Ligation: No Are You Post Menopause: No Genitourinary Hx Renal Disease: No Musculoskeletal Hx Arthritis: Yes (toes,fingers) Hx Rheumatoid Arthritis: No Hx Gout: No Recent Onset of an Orthopedic Problem: No Endocrine Hx Diabetes: No Thyroid Disease: No Hx Steroid Therapy: No Psycho/Social Hx Substance Use: No Hx Alcohol Use: Yes (3 drinks/week) Hx Anxiety: No Hx Depression: No Mental Illness: No Hx Dementia: No Miscellaneous Hx Cancer: No Recent Exposure to Contagious Disease: No Hx of C-Diff: No Any Loose Teeth: No Allergies Latex, Natural Rubber Allergy (Intermediate, Verified 05/12/24 13:04) inflamation adhesive (adhesives) Allergy (Verified 05/12/24 13:04) Rash Discharge Is Pt Admitted From a Skilled Nursing, or a Long-Term: No Who Could Help: After D/C, Where Do you Plan to Go: Return Home Vital Signs Vital Signs Vital Signs: 06/12/24 08:24 06/12/24 08:28 Temperature 98.1 F Temperature Source Temporal Pulse Rate 85 Respiratory Rate 16 Respiratory Pattern Normal Blood Pressure 103/73 Blood Pressure Mean 83 Blood Pressure Source Monitor Blood Pressure Position Sitting Blood Pressure Location Right Arm Pulse Ox 97 Weight Weight: 147 lb 11.355 oz Body Mass Index (BMI) 25.3 Physical Exam Const alert and oriented x3 HEENT normocephalic Eyes PERRL Resp normal respiratory effort and normal air movement Cardio regular rate and regular rhythm GI soft to palpation, non-tender and non-distended Extremity normal to inspection Assessment & Plan Assessment/Plan (1) Encounter for screening for malignant neoplasm of colon: PLAN: I explained endoscopy in detail to the patient. I explained the risks including but not limited to stroke or heart attack with anesthesia, perforation of the GI tract, bleeding, infection. I explained that any of these could necessitate further emergency surgery. The patient understands and all questions were answered sufficiently. The patient wishes to proceed with procedure. Cristofer Hudson MD Pager: [facility] [address] [place] [address], [address] [place] [address] Office: Surgery Risks - Colonoscopy Risks Include but are not Limited To: Risks include but are not limited to: Bleeding, perforation requiring further surgery, inability to complete colonoscopy requiring barium enema.
--- NOTE | 2024-06-12 10:23 | OP.COLON_ITS ---
Patient Name: Day Ramos Procedure Date: 06/12/2024 9:36 AM Date of : 1980 Age: 43 Procedure: Colonoscopy Indications: Screening for colorectal malignant neoplasm Providers: Cristofer Hudson MD Medicines: Propofol per Anesthesia Patient Profile: This is a 43 year old female. Refer to note in patient chart for documentation of history and physical. Last Colonoscopy: none. The patient's first colonoscopy is today. Complications: No immediate complications. Procedure: Pre-Anesthesia Assessment: - Prior to the procedure, a History and Physical was performed, and patient medications and allergies were reviewed. The patient's tolerance of previous anesthesia was also reviewed. The risks and benefits of the procedure and the sedation options and risks were discussed with the patient. All questions were answered, and informed consent was obtained. Prior Anticoagulants: The patient has taken no anticoagulant or antiplatelet agents. After reviewing the risks and benefits, the patient was deemed in satisfactory condition to undergo the procedure. After I obtained informed consent, the scope was passed under direct vision. Throughout the procedure, the patient's blood pressure, pulse, and oxygen saturations were monitored continuously. The colonoscope was introduced through the anus and advanced to the cecum, identified by appendiceal orifice and ileocecal valve. The colonoscopy was performed without difficulty. The patient tolerated the procedure well. The quality of the bowel preparation was good. The ileocecal valve, appendiceal orifice, and rectum were photographed. Scope In: 9:59:37 AM Scope Withdrawal Time 0 hours 6 minutes 5 seconds Scope Out: 10:15:26 AM Total Procedure Duration Time 0 hours 15 minutes 49 seconds Findings: The entire examined colon appeared normal on direct and retroflexion views. Impression: - The entire examined colon is normal on direct and retroflexion views. - No specimens collected. Recommendation: - Discharge patient to home. - Resume previous diet. - Continue present medications. - Repeat colonoscopy in 10 years for screening purposes. Procedure Code(s): --- Professional --- 82868, Colonoscopy, flexible; diagnostic, including collection of specimen(s) by brushing or washing, when performed (separate procedure) Diagnosis Code(s): --- Professional --- Z12.11, Encounter for screening for malignant neoplasm of colon CPT copyright 2021 [employer]. All rights reserved. The codes documented in this report are preliminary and upon vehicle refinisher review may be revised to meet current compliance requirements. Cristofer Hudson MD 06/12/2024 10:23:16 AM This report has been signed electronically. Number of Addenda: 0 Note Initiated On: 06/12/2024 9:36 AM
--- NOTE | 2024-06-12 10:24 | OP.CCLET_ITS ---
06/12/2024 Delia Jiang MD [address] [place] [address] [place] [address] Re : Colonoscopy procedure for Day Ramos Dear Dr. Jiang This procedure was performed on Wednesday, June 12, 2024. My impressions and recommendations are as follows: Impressions : - The entire examined colon is normal on direct and retroflexion views. - No specimens collected. Recommendations : - Discharge patient to home. - Resume previous diet. - Continue present medications. - Repeat colonoscopy in 10 years for screening purposes. My findings are described in the full procedure note, which is enclosed. If I can be of further assistance, please feel free to contact me at Doctor phone number(s): , Work: . Sincerely, Cristofer Hudson MD 06/12/2024 10:23:16 AM This report has been signed electronically.
--- NOTE | 2024-06-12 10:24 | PCM.POST.ANE ---
Anesthesia: Postop Eval I Current Vital Signs Temperature: 97.2 F Pulse Rate: 88 Blood Pressure: 100/58 Respiratory Rate: 16 Pulse Ox: 100 Oxygen Delivery Method: Room Air Assessment Airway patent: Yes Spontaneous unlabored respirations: Yes Mental status: Awake and Calm nausea: No Vomiting: No Anesthesia Complication: No Fluid Hydration Crystalloid volume administer (ml): 700 Total IV fluid infused: 700 Progress Note Anesthesia document: Postop Eval 1 completed: Yes
--- NOTE | 2024-06-12 10:28 | PCM.POSTANE2 ---
Anesthesia Postop Eval I Sum Postop Eval Completion status Anesthesia document: Postop Eval 1 completed: Yes Anesthesia Postop Eval I Summary Anesthesia Postop Eval I Summary: Anesthesia Postop Eval I: Assessment Summary Airway patent Yes 06/12/24 10:26 Spontaneous unlabored Yes 06/12/24 10:26 respirations Mental status Awake,Calm 06/12/24 10:26 nausea No 06/12/24 10:26 Vomiting No 06/12/24 10:26 Anesthesia Postop Eval I: Fluid Summary Crystalloid volume administer 700 06/12/24 10:26 (ml) Colloids volume administered ( ml) Blood Product volume administered (ml) Total IV fluid infused 06/12/24 10:26 Anesthesia Postop Eval I: Summary Notes Anesthesia Complication No 06/12/24 10:26 Anesthesia Complication Comment: Post-operative progress note Anesthesia: Postop Eval II Evaluation Mental status: Awake Pain Level: 0 nausea: No Vomiting: No
== END 2024-06-12 11:04 | disposition home or self-care (01) ==
LOC: EN 08:05 → AC 08:06
PROVIDERS: PCP Internal Medicine; Referring Provider Internal Medicine; Visit Provider Surgery
PROC: 0DJD8ZZ Inspection of Lower Intestinal Tract, Via Natural or Artificial Opening Endoscopic (ICD-10-PCS; CPT 45378; principal; 2024-06-12 08:55)
DX: Z12.11 Encounter for screening for malignant neoplasm of colon (principal); E78.5 Hyperlipidemia, unspecified; Z90.710 Acquired absence of both cervix and uterus
CPT/HCPCS: 45378; J7120; J2405

== ENCOUNTER → 2025-07-16 | Outpatient (CLI) | payer BC, SELFPAY ==
[2025-07-16 10:34] LABS: Hematocrit 38.8 % (37-47); Hemoglobin 13.3 g/dL (12.0-15.0); Immature Granulocytes Count 0.010 X10^3/uL (0.0-0.0); Mean Corp Hgb Conc 34.3 g/dL (32-36); Mean Corpuscular Volume 91.9 fL (81-99); Mean Platelet Vol. 10.0 fl (6.2-12.0); NRBC Flagged by Analyzer 0 % (0-5); Platelet Count 214 K/mm3 (150-450); RBC Distribution Width CV 12.5 % (11.6-14.6); RBC Distribution Width SD 42.0 fl (35.1-43.9); Red Blood Count 4.22 M/mm3 (4.2-5.4); White Blood Count 6.9 K/mm3 (4.4-11.0)
[2025-07-16 10:55] LABS: AST(SGOT) 21 U/L (<=31); Alanine Aminotransfer ALT/SGPT 15 U/L (<=34); Albumin, Serum 4.4 g/dL (3.5-5.0); Alkaline Phosphatase 45 U/L (35-104); Anion Gap 13 (5-15); BUN 9 mg/dL (4-19); BUN/Creat Ratio 12.1 RATIO (10-20); Calcium,Total 9.3 mg/dL (7.6-11.0); Carbon Dioxide 20.7 mmol/L (21.0-32.0); Chloride 104 mmol/L (98-108); Cholesterol 170 mg/dL (<=200); Globulin 2.7 g/dL (2.2-4.2); Glucose 97 mg/dL (70-99); Low Density Lipoprotein Calc. 84 mg/dL; Potassium 4.0 mmol/L (3.3-5.1); Triglycerides 64 mg/dL; Very Low Density Lipoprotein 13 mg/dL (5-40); cholesterol:hdl ratio screen 2.33
== END | disposition home or self-care (01) ==
LOC: MTLAB 08:29
PROVIDERS: PCP Internal Medicine; Referring Provider Internal Medicine; Visit Provider Internal Medicine
DX: Z00.00 Encounter for general adult medical examination without abnormal findings (principal)
CPT/HCPCS: 36415; 80053; 80061; 85025

== ENCOUNTER → 2025-07-30 | Outpatient (CLI) | payer BC, SELFPAY ==
--- NOTE | 2025-07-30 12:00 | BI_ITS ---
EXAM: SCRN MAMM (CAD)W/DAKOTA BILAT DATE: 07/30/2025 CLINICAL HISTORY: F, Age 44 y/o , BREAST CANCER SCREENING TECHNIQUE: Procedure Code: [id number] Modality: MG Procedure: SCRN MAMM (CAD)W/DAKOTA BILAT COMPARISON: Prior exam(s) were compared FINDINGS: TISSUE DENSITY: The breasts are heterogeneously dense, which may obscure small masses. Bilateral Breast Mammographic Findings: No suspicious masses, calcifications or other abnormalities are identified. BI/SCRN MAMM (CAD)W/DAKOTA BILAT IMPRESSION: No mammographic evidence of malignancy. OVERALL FINAL ASSESSMENT BI-RADS 1: NEGATIVE. RECOMMENDATION: Routine annual follow-up in 1 Year A letter with findings and recommendations will be mailed to the patient. Reading Location: [id number]
== END | disposition home or self-care (01) ==
LOC: OPBI 11:59
PROVIDERS: PCP Internal Medicine; Referring Provider Internal Medicine; Visit Provider Internal Medicine
DX: Z12.31 Encounter for screening mammogram for malignant neoplasm of breast (principal)
CPT/HCPCS: 77063; 77067